=== PATIENT | male | born 1990 | race Caucasian/White ===

== ENCOUNTER 2019-11-12 14:22 | Emergency (ER) | payer MEDICAID ==
--- NOTE | 2019-11-12 14:51 | UC ---
Lower Extremity/Ankle HPI - HPI Summary HPI Summary: 29-year-old nondiabetic male who has a wound infection on his left lateral ankle from a brace that he wears which has worn down and now rubs against that area. It is now red swollen and painful with no active pus drainage however there is pus at wound site. - History of Current Complaint Chief Complaint: [place] Stated Complaint: L FOOT COMP Time Seen by Provider: 11/12/19 14:31 Hx Obtained From: Patient Onset/Duration: Gradual Onset, Lasting Days Severity Initially: Mild Severity Currently: Moderate Pain Intensity: 0 Aggravating Factor(s): Ambulation Alleviating Factor(s): Nothing Able to Bear Weight: Yes - Allergies/Home Medications Allergies/Adverse Reactions: Allergies Allergy/AdvReac Type Severity Reaction Status Date / Time No Known Allergies Allergy Verified 11/12/19 14:48 PMH/Surg Hx/FS Hx/Imm Hx - Additional Past Medical History Additional PMH: History of Cerebral palsy, patient wears a leg brace Previously Healthy: Yes - Surgical History Surgical History: None - Family History Known Family History: Positive: Non-Contributory - Social History Alcohol Use: Weekly Alcohol Amount: weekends / bottle vodka Substance Use Type: Excessive Caffeine Smoking Status (MU): Former Smoker Type: Smokeless Tobacco Amount Used/How Often: daily Review of Systems All Other Systems Reviewed And Are Negative: Yes Skin: Positive: Other - Redness swelling and an open wound occurring over the past week. Eyes: Positive: Drainage - No active drainage however there is pus at the wound site on the lateral left ankle. Musculoskeletal: Positive: Other: Is Patient Immunocompromised?: No Physical Exam Triage Information Reviewed: Yes Appearance: Well-Appearing, No Pain Distress, Well-Nourished Vital Signs: Initial Vital Signs Temp 98.7 F 11/12/19 14:32 Pulse 94 11/12/19 14:32 Resp 20 11/12/19 14:32 BP 140/89 11/12/19 14:32 Pulse Ox 98 11/12/19 14:32 Vital Signs Reviewed: Yes Musculoskeletal: Positive: Other: - The left ankle and foot are swollen, erythematous, tender on palpation. There is an open wound approximately 1.5 cm in diameter on the lateral left ankle with yellow pus present but not able to be expressed. It is tender on palpation. Good peripheral pulses neuro sensation capillary refill. Neurological: Positive: Alert Psychological Exam: Normal Skin: Positive: Other - See above notes. Lower Extremity Course/Dx - Course Course Of Treatment: Left ankle x-ray:FINDINGS: BONE DENSITY: Normal. BONES: There is no displaced fracture. There is no appreciable erosion or periosteal reaction. JOINTS: There is no arthropathy. ALIGNMENT: There is no dislocation. SOFT TISSUES: There is extensive circumferential soft tissue swelling. OTHER FINDINGS: None. IMPRESSION : SOFT TISSUE SWELLING. NO ACUTE OSSEOUS INJURY. NO EROSION OR PERIOSTEAL REACTION. PLAIN RADIOGRAPH FINDINGS OF OSTEOMYELITIS ARE RELATIVELY LATE FINDINGS. IF THERE IS PERSISTENT CLINICAL CONCERN FOR OSTEOMYELITIS, RECOMMEND CORRELATION WITH FOLLOWUP IMAGING, THREE-PHASE BONE SCANNING, WHITE BLOOD CELL SCAN, AND/OR MRI OF THE AFFECTED REGION. The patient has no history of MRSA however I am going to treated with Bactrim DS one tab by mouth twice a day 10 days. I'm referring him to the wound care clinic locally for further evaluation and treatment. He is to elevate his foot as much as possible. No work this week. He is go the emergency room if he has any worsening symptoms, red streaks up his leg, fever or chills. - Differential Dx/Diagnosis Provider Diagnosis: Cellulitis of foot, Wound infection Discharge ED - Sign-Out/Discharge Documenting (check all that apply): Patient Departure All imaging exams completed and their final reports reviewed: Yes - Discharge Plan Condition: Fair Disposition: HOME Referrals: Kiran Benedict DO [Primary Care Provider] - - Billing Disposition and Condition Condition: FAIR Disposition: Home
== END 2019-11-12 15:56 | disposition home or self-care (01) ==
LOC: UCCORT 14:22
DX: L03.116 Cellulitis of left lower limb (principal); S90.922A Unspecified superficial injury of left foot, initial encounter; X58.XXXA Exposure to other specified factors, initial encounter; Y92.9 Unspecified place or not applicable; Z87.891 Personal history of nicotine dependence; M79.89 Other specified soft tissue disorders
CPT/HCPCS: 99201; G0463